=== PATIENT | female | born 1995 | race Caucasian/White ===

== ENCOUNTER 2020-05-11 09:57 | Inpatient (IN) | payer OTHER, MEDICAID ==
[~2020-05-11] VITALS: Ht 160 cm; Wt 59.0 kg
[2020-05-11 10:00] VITALS: BP 135/88
[2020-05-11 10:18] LABS: HEMATOCRIT 46.4 % (37.0-47.0); HEMOGLOBIN 14.8 gm/dL (12.0-15.0); MCH 25.7 pg (26.0-34.0); MCHC 31.9 g/dL (28.0-37.0); MCV 80.8 fL (80.0-100.0); MPV 8.2 fl. (7.2-11.1); RBC 5.74 mil/uL (4.20-5.00); RDW-CV 15.7 % (10.5-14.5); WBC 17.7 thou/uL (4.0-11.0)
[2020-05-11 10:27] LABS: CALCIUM 9.2 mg/dL (8.5-10.1); CREATININE 1.1 mg/dL (0.6-1.3)
[2020-05-11 10:31] LABS: ALBUMIN 4.6 g/dL (3.4-5.0); MAGNESIUM 2.2 mg/dL (1.8-2.4); TOTAL BILIRUBIN 0.4 mg/dL (<0.1-1.0); TOTAL PROTEIN 8.4 g/dL (6.4-8.2)
[2020-05-11 10:33] LABS: POTASSIUM 2.7 mmol/L (3.5-5.1)
[2020-05-11 13:50] VITALS: BP 127/83
== END 2020-05-11 13:50 | disposition left against medical advice (07) | DRG 641 ==
LOC: M.ERS 09:57 → M.TBA-ER 12:33
PROVIDERS: Emergency Medicine Emergency Medical Services; ADMIT Internal Medicine; ATTEND Internal Medicine
DX: E87.6 Hypokalemia (principal); E87.2 Acidosis; E86.0 Dehydration; Z88.8 Allergy status to other drugs, medicaments and biological substances; Z53.29 Procedure and treatment not carried out because of patient's decision for other reasons; Z81.1 Family history of alcohol abuse and dependence; Z72.89 Other problems related to lifestyle; Z79.899 Other long term (current) drug therapy

== ENCOUNTER 2021-04-16 19:45 | Emergency (ER) | payer OTHER ==
[~2021-04-16] VITALS: Ht 165.1 cm; Wt 57.6 kg
[2021-04-16 21:48] LABS: ABSOLUTE LYMPHOCYTES 2.5 thou/uL (0.8-5.3); ABSOLUTE MONOCYTES 0.5 thou/uL (0.0-1.2); ABSOLUTE NEUTROPHILS 5.3 thou/uL (1.6-8.1); BASOPHILS 0.2 %; EOSINOPHILS 0.2 %; HEMATOCRIT 39.6 % (37.0-47.0); LYMPHOCYTES 29.6 %; MCH 26.5 pg (26.0-34.0); MCHC 32.7 g/dL (28.0-37.0); MCV 80.9 fL (80.0-100.0); MONOCYTES 6.4 %; MPV 8.5 fl. (7.2-11.1); NUCLEATED RBCS 0 /100WBC; PLATELET COUNT* 211 thou/uL (150-400); POLYS 63.6 %; RBC 4.89 mil/uL (4.20-5.00); RDW-CV 14.1 % (10.5-14.5); WBC 8.3 thou/uL (4.0-11.0)
[2021-04-16 21:51] LABS: CALCIUM 8.7 mg/dL (8.5-10.1); CREATININE 0.5 mg/dL (0.6-1.3); POTASSIUM 3.1 mmol/L (3.5-5.1)
[2021-04-16 21:54] LABS: URINE BILIRUBIN NEGATIVE (Negative); URINE BLOOD NEGATIVE (Negative); URINE CLARITY CLOUDY; URINE COLOR YELLOW; URINE GLUCOSE-RANDOM NEGATIVE (Negative); URINE KETONES 2+ (Negative); URINE LEUKOCYTES-REFLEX NEGATIVE (Negative); URINE NITRITE-REFLEX NEGATIVE (Negative); URINE PROTEIN NEGATIVE (Negative); URINE SPECIFIC GRAVITY 1.015 (1.005-1.030); URINE UROBILINOGEN 0.2 E.U./dl (0.2-1.0)
[2021-04-16 23:26] LABS: AMP/METHAMP Negative (Negative); BARBITURATES Negative (Negative); BENZODIAZEPINES Negative (Negative); COCAINE Negative (Negative); METHADONE Negative (Negative); OPIATES Negative (Negative); PCP Negative (Negative); THC POSITIVE (Negative)
[2021-04-16] MEDS ORDERED: PHENERGAN 25 MG25 M1 PO (23:38)
[2021-04-16] MEDS ORDERED: PROMS25 WY RECTAL (23:38)
[2021-04-17] VITALS: BP 125/72
== END 2021-04-17 | disposition home or self-care (01) ==
LOC: M.ERS 19:45
PROVIDERS: Emergency Medicine
DX: O21.0 Mild hyperemesis gravidarum (principal); Z3A.01 Less than 8 weeks gestation of pregnancy; Z88.8 Allergy status to other drugs, medicaments and biological substances